=== PATIENT | female | born 1990 | race Caucasian/White ===

== ENCOUNTER 2019-04-05 12:11 | Emergency (ER) | payer BC ==
[2019-04-05 13:41] LABS: ABS Lymphocytes 1.7 10^3/ul (1.0-4.8); ABS Monocytes 0.3 10^3/ul (0-0.8); ABS Neutrophils 5.5 10^3/ul (1.5-7.7); Eosinophil % 0.1 %; Hematocrit 39 % (35-47); Hemoglobin 13.1 g/dL (12.0-16.0); Lymphocyte % 22.3 %; Mean Corpuscular HGB Conc 34 g/dL (31-36); Mean Corpuscular Hemoglobin 30 pg (27-31); Mean Corpuscular Volume 89 fL (80-97); Mean Platelet Volume 7.7 fL (7.4-10.4); Platelet Count 313 10^3/uL (150-450); Red Blood Count 4.33 10^6 /uL (3.70-4.87); Red Cell Distribution Width 14 % (10-15); White Blood Count 7.6 10^3/uL (3.5-10.8)
[2019-04-05 14:03] LABS: Albumin 4.1 g/dL (3.2-5.2); Albumin/Globulin Ratio 1.4 (1-3); BUN/Creatinine Ratio 8.3 (8-20); Calcium 9.4 mg/dL (8.6-10.3); EGFR African American 118.5 (>60); EGFR Non-African American 97.9 (>60); Potassium 3.6 mmol/L (3.5-5.0); Total Bilirubin 0.4 mg/dL (0.2-1.0); Total Protein 7.1 g/dL (6.4-8.9)
[2019-04-05 14:36] VITALS: BP 158/106
--- NOTE | 2019-04-05 14:39 | ED ---
Progress - Progress Note Progress Note: Patient was seen in the waiting room by provider per request. Pt asymptomatic and OK to go home per patient. States she had symptoms similar to this before where she had some tingling into the L hand like carpal tunnel which radiated up to the L upper arm and into the face. She thought this to be a migraine, took Excedrin and went to bed. She awoke with a GRAY, took another Excedrin and was able to fall back asleep. Today, she endorses similiar symptoms but states it began perioral, radiated to the L arm and persisted for 1.5 hours then resolved spontaneously. This was not associated with GRAY, SOB, CP, nausea, vomiting, abd pain, confusion, visual changes or memory loss. Symptoms are not completely resolved and pt states she is at her baseline. Ok for discharge home, patient will follow up with neurology. Labs were obtained from and were WNL. I have advised she return to the ED or follow up with PCP, Dr. Fowler if symptoms persist. She was also noted to have high BP in the ED and she was encouraged to f/u. BP = 158/106. Recheck bedside manual 156/102. EKG obtained which is NSR. - EKG/XRAY/CT EKG: NSR - Additional EKG/XRAY/Consults EKG #2: NSR Course/Dx - Course Course Of Treatment: see above - Diagnoses Provider Diagnoses: Tingling sensation in face Is Visit Related: No Discharge ED - Sign-Out/Discharge Documenting (check all that apply): Patient Departure - Discharge Plan Condition: Stable Disposition: HOME Patient Education Materials: Migraine Headache (ED) Referrals: Shama Fowler MD [Primary Care Provider] - Dante Contreras MD [Medical Doctor] - Rj Weaver [Nurse Practitioner] - Additional Instructions: Migraine GRAY information has been given to you As discussed, it is difficult at this time to discern if this is an atypical migraine vs. other neuro symptoms vs. medication reaction I advise you follow up with Dr. Conterras or other neurologist If symptoms persist or worsen, please return to the ED Your blood pressure has improved, but still high - you will need to talk to Dr. Fowler regarding this It is likely high because you are here in the ED, but you will need to have this rechecked. - Billing Disposition and Condition Condition: STABLE Disposition: Home
== END 2019-04-05 14:34 | disposition home or self-care (01) ==
LOC: ED 12:11
DX: R20.2 Paresthesia of skin (principal); I49.9 Cardiac arrhythmia, unspecified; Z88.2 Allergy status to sulfonamides
CPT/HCPCS: 36415; 80053; 85025; 93005; 99282